=== PATIENT | male | born 1960 | race Caucasian/White ===

== ENCOUNTER 2020-09-11 12:32 | Emergency (ER) | payer OTHER ==
[2020-09-11] MEDS ORDERED: Cordarone 150 MG/3 ML Injection IV ONE (12:33)
[2020-09-11] MEDS ORDERED: Magnesium Sulfate 1 GM/2 ML VIAL ONE (12:47)
[2020-09-11] MEDS ORDERED: Sodium Chloride 0.9% 1000 ML 1,000 ML ONE (12:47)
[2020-09-11 13:07] LABS: Hematocrit 47.6 % (42-50); Hemoglobin 15.2 gm/dl (12.5-18.0); Mean Cell Volume 102.4 fl (78-100); Mean Corpuscular Hemoglobin 32.7 pg (26-32); Mean Corpuscular Hgb Concent. 31.9 g/dl (32-36); Mean Platelet Volume 11.4 fl (7.5-11.0); Platelet Count 101 K/mm3 (150-450); Red Blood Count 4.65 M/mm3 (4.1-5.6); Red Cell Distribution Width 13.3 % (11.5-14.0); White Blood Count 13.7 K/mm3 (4.0-10.5)
--- NOTE | 2020-09-11 13:08 | XRAY ---
Indication: Tube placement. Cardiac arrest. Comparison: None Portable chest demonstrates endotracheal tube tip 1 cm above lenny. Lungs underinflated with mild bilateral upper lobe infiltrates/atelectasis, left greater than right. Prominent heart presumed from underinflation. Bony thorax intact with degenerative changes.
[2020-09-11 13:18] LABS: ALBUMIN 3.4 g/dL (3.5-5.0); ALKALINE PHOSPHATASE 76 U/L (38-126); ANION GAP 30.9 MEQ/L (5-15); BLOOD UREA NITROGEN 15 mg/dL (9-20); CHLORIDE 105 mmol/L (98-107); Calcium 9.2 mg/dL (8.4-10.2); Creatinine 1 1.07 mg/dL (0.66-1.25); EST GLOMERULAR FILTRATION RATE > 60.0 ML/MIN; Potassium 4.9 mmol/L (3.5-5.1); SGOT/AST 87 U/L (17-59); SGPT/ALT 71 U/L (0-50); SODIUM 144 mmol/L (137-145); Total Protein 6.2 g/dL (6.3-8.2)
[2020-09-11 13:19] LABS: A-aADO2 539; ABG HEMOGLOBIN 15.2; ABG POTASSIUM 4.9 (3.5-5.1); ARTERIAL BLD GAS O2 SATURATION 87.5 % (95-100); ARTERIAL BLOOD GAS BASE EXCESS -21.2 (-2.0-2.0); ARTERIAL BLOOD GAS FIO2 100 %; ARTERIAL BLOOD GAS PO2 77 mmHg (75-100); CARBOXYHEMOGLOBIN 1.3 % THgb (0.0-6.9); HCO3- 13.6 (22-28); HGB O2 SAT 86.2 g/dF (94-100); Methhemoglobin 0.2 % (1.4-1.5); paO2 pAO1 0.13
[2020-09-11 13:22] LABS: ARTERIAL BLOOD GAS pH 6.85 (7.35-7.45)
[2020-09-11 13:23] LABS: ARTERIAL BLOOD GAS PCO2 78 mmHg (35-45)
--- NOTE | 2020-09-11 13:23 | ERPHSYRPT ---
- History of Present Illness Time Seen by Provider: 09/11/20 12:35 Source: EMS Exam Limitations: clinical condition Physician History: This is an obese 59-year-old white male has a history of coronary artery disease, pulmonary embolism with [place] filter, and hypertension and presents to emergency department and code arrest. He was evaluated by EMS at approximately 1210 this afternoon to be transported to the emergency department when he suddenly went into PEA rhythm and became unresponsive. He has been in PEA upon arrival to the emergency department. Patient arrived to the emergency department with pupils dilated and no palpable pulse with a PEA rhythm in the 20s. Patient received 4 doses of epinephrine intravenously, single dose of atropine. He did not have shockable rhythm in route to our facility. Timing/Duration: today Severity: severe Modifying Factors: Improves With: nothing Associated Symptoms: other (Code arrest, unresponsive) Allergies/Adverse Reactions: No Known Drug Allergies Allergy (Unverified 09/11/20 13:09) Travel Risk - International Travel Have you traveled outside of the country in past 3 weeks: No - Coronavirus Screening Are you exhibiting any of the following symptoms?: No Close contact with a COVID-19 positive Pt in past 14-21 Days: No - Review of Systems Constitutional: No Symptoms Eyes: No Symptoms Ears, Nose, & Throat: No Symptoms Respiratory: Dyspnea Cardiac: Chest Pain Abdominal/Gastrointestinal: No Symptoms Genitourinary Symptoms: No Symptoms Musculoskeletal: No Symptoms Skin: No Symptoms Neurological: No Symptoms Psychological: No Symptoms Endocrine: No Symptoms Hematologic/Lymphatic: No Symptoms Immunological/Allergic: No Symptoms All Other Systems: Reviewed and Negative - Past Medical History Pertinent Past Medical History: Yes Cardiac History: Coronary Artery Disease, Deep Vein Thrombosis, Hypertension Respiratory History: Pulmonary Embolism Endocrine Medical History: No Pertinent History Musculoskeletal History: No Pertinent History GI Medical History: No Pertinent History History: No Pertinent History Psycho-Social History: No Pertinent History Male Reproductive Disorders: No Pertinent History - Past Surgical History Past Surgical History: Yes Cardiac: Other ([place] filter) - Physical Exam General Appearance: obese Eye Exam: other (Bilateral pupils fixed and dilated) Ears, Nose, Throat Exam: other (I gel in place) Respiratory Exam: other (No spontaneous breath sounds) Cardiovascular Exam: other (No palpable pulse or audible heart rate) Gastrointestinal/Abdomen Exam: soft (Obese) Rectal Exam: not done Extremity Exam: other (Mottled skin bilateral lower extremities) Neurologic Exam: other (Unresponsive) Skin Exam: mottled, pale ([place] generalized with cyanotic face and neck) O2 Delivery: Ambu-Bag (Initially with I gel) Procedures - Intubation Intubation Indications: cardiac arrest Intubation Method: orotracheal, glidescope Tube Size (cm): 8.0 C-Spine: maintained Endotracheal Tube Confirmation: bilateral breath sounds Intubation Complications: no complications Performed By: Respiratory Therapy Post Intubation Xray: Yes Progress/X-ray Impression: 09/11/20 13:28 Post intubation chest x-ray shows the endotracheal tube tip approximately 1 cm above the lenny. The lungs are underinflated and there is mild bilateral upper lobe infiltrate/atelectasis. - Course Nursing assessment & vital signs reviewed: Yes EKG Interpreted by Me: RATE, Other (Junctional rhythm.) Ordered Tests: Active Orders 24 hr Category Date Time Status CHEST 1 VIEW (PORTABLE) Stat Exams 09/11/20 12:42 Completed ARTERIAL BLOOD GASES Stat Lab 09/11/20 12:40 Results CBC W DIFF Stat Lab 09/11/20 13:00 Ordered CMP Stat Lab 09/11/20 13:00 Ordered D-DIMER QUANTITATIVE Stat Lab 09/11/20 13:00 Ordered MAG [MAGNESIUM] Stat Lab 09/11/20 13:01 Ordered TROPONIN Q3H Lab 09/11/20 13:00 Ordered TROPONIN Q3H Lab 09/11/20 16:00 Ordered TROPONIN Q3H Lab 09/11/20 19:00 Ordered TROPONIN Q3H Lab 09/11/20 22:00 Ordered Medication Summary Discontinued Medications Generic Name Dose Route Start Last Admin Trade Name Freq PRN Reason Stop Dose Admin Sodium Chloride Confirm 09/11/20 12:47 Sodium Chloride 0.9% 1000 Ml Administered 09/11/20 12:48 Dose 1,000 mls @ ud .ROUTE .STK-MED ONE Magnesium Sulfate Confirm 09/11/20 12:47 Magnesium Sulfate 1 Gm/2 Ml Vial Administered 09/11/20 12:48 Dose 1 gm .ROUTE .STK-MED ONE Lab/Rad Data: Laboratory Results 09/11/20 Range/Units 12:40 Puncture Site femoral pCO2 78 H* (35-45) mmHg pO2 77 (75-100) mmHg Base Excess -21.2 L (-2.0-2.0) O2 Saturation 86.2 L (94-100) g/dF ABG pH 6.85 L* (7.35-7.45) ABG HCO3 13.6 L* (22-28) ABG O2 Sat (Measured) 87.5 L (95-100) % Feliciano Test Pending A-a Gradient 539 a/A Ratio 0.13 Hemoglobin 15.2 Carboxyhemoglobin 1.3 (0.0-6.9) % THgb Methemoglobin 0.2 L (1.4-1.5) % Potassium 4.9 (3.5-5.1) Temperature 37.0 C POC O2 Flow Rate 100 % Vent Mode ambu - Progress Progress: unchanged Progress Note: 09/11/20 13:30 Code arrest process called at 1307. Code process was unsuccessful. Counseled pt/family regarding: lab results, diagnosis, rad results - Departure Departure Disposition: Clinical Impression: Cardiopulmonary arrest Condition: Critical Care Time: Yes Critical Care Time(excluding separately billable procedures): Critical 30-74 mins Referrals: DANTE PATEL MD [Primary Care Provider] -
[2020-09-11 13:28] LABS: Glucose 515 mg/dL (74-106)
[2020-09-11 13:29] LABS: Carbon Dioxide 13 mmol/L (22-30)
[2020-09-11] MEDS ORDERED: SODIUM BICARBONATE 50 MEQ/50 ML ABBOJECT IV ONE (13:30)
[2020-09-11] MEDS ORDERED: EPINEPHRINE ABBOJECT 1 MG IV ONE (13:30)
[2020-09-11 15:24] LABS: BAND 5 % (0.0-2.0); Lymphocytes 40 % (24-44); Monocyte 11 % (0.0-12.0); Neutrophils 44 % (36.-66.); Platelet Estimate DECREASED (NORMAL); Total Cells Counted 100
== END 2020-09-11 17:17 | disposition expired ==
LOC: ED 12:32
DX: I46.9 Cardiac arrest, cause unspecified (principal)
CPT/HCPCS: 31500; 36415; 36600; 71045; 80053; 82375; 82803; 83735; 84484; 85025; 85379; 92950; 94799; 99284; 99291; J0171; J0282; J3475